=== PATIENT | female | born 2005 | race Caucasian/White ===

== ENCOUNTER 2025-06-07 09:36 | Emergency (ER) | payer OTHER, SELFPAY ==
[2025-06-07 09:48] VITALS: BP 108/73; PULSE 88; RESP 16; TEMP 36.9; O2SAT 100
--- NOTE | 2025-06-07 10:51 | ED.EYEPROB ---
HPI - Eye Problem General Chief complaint: Eye Problems Stated complaint: pink eye Time Seen by Provider: 06/07/25 10:45 Source: patient and RN notes reviewed Mode of arrival: ambulatory Limitations: no limitations History of Present Illness HPI Narrative: 19-year-old female patient presents today with bilateral eye redness, slight itching, and crusting. Denies vision changes, pain, purulent discharge. Patient had pinkeye 2 weeks ago and was treated with antibiotic drops. States she for got to wash her pillowcase in her home and left her antibiotic drops in her dorm room and college. She does not were glasses or contacts. Related Data Home Medications ?Medication ?Instructions ?Recorded ?Confirmed ?Last Taken ?Type drospirenone 3 mg-ethinyl tablet 06/07/25 Unknown History estradiol 0.02 mg tablet (Loryna (28)) Allergies Allergy/AdvReac Type Severity Reaction Status Date / Time No Known Allergies Allergy Verified 06/07/25 09:43 PMFSH Comments At time of signature, I have reviewed and agree with nursing past medical, surgical, social and family history unless otherwise noted. Please see nursing chart for further information. There is no relevant family history pertinent to the presenting complaint Exam Narrative: GENERAL: Well-appearing, well-nourished, and in no acute distress. HEAD: Normocephalic, atraumatic. EYES: EOMI. PERRL. Bilateral injected conjunctiva, left greater than right. Lids and lashes normal. ENT: Mucous membranes pink and moist. NECK: Normal AROM. CHEST: No respiratory distress. EXTREMITIES: Normal range of motion. No edema. SKIN: Warm, dry, no rash. Capillary refill normal. Normal skin turgor. NEURO: No focal deficits. Alert and oriented x3. Gait steady. PSYCH: Normal affect. No signs of depression or anxiety. Course Course Level of Care: Express Care Visit Vital Signs Vital signs: Vital Signs Temperature 98.5 F 06/07/25 09:48 Pulse Rate 88 06/07/25 09:48 Respiratory Rate 16 06/07/25 09:48 Blood Pressure 108/73 06/07/25 09:48 Pulse Oximetry 100 06/07/25 09:48 Temperature 98.5 F 06/07/25 09:48 Pulse Rate 88 06/07/25 09:48 Respiratory Rate 16 06/07/25 09:48 Blood Pressure 108/73 06/07/25 09:48 Pulse Oximetry 100 06/07/25 09:48 Reviewed MDM - Eye Problem MDM Narrative Medical decision making narrative: 19-year-old female patient presents today with bilateral eye redness, slight itching, and crusting. Denies vision changes, pain, purulent discharge. Patient had pinkeye 2 weeks ago and was treated with antibiotic drops. States she for got to wash her pillowcase in her home and left her antibiotic drops in her dorm room and college. She does not were glasses or contacts. Upon exam, patient has bilateral injected conjunctiva, lids and lashes normal. At this time, patient has no purulent discharge, however, with recent bacterial conjunctivitis treatment and exposure to discharge on her pillow at home, will treat again for likely early bacterial conjunctivitis with Polytrim. Patient agrees with plan. Vital signs stable. Anticipatory guidance given. Differential Diagnosis Differential diagnosis: Likely conjunctivitis Critical Care Time Critical Care Time Critical Care Time: No Discharge Plan Discharge Clinical Impression: Acute bacterial conjunctivitis of both eyes Patient Disposition: Home Condition: Stable Instructions: Conjunctivitis (ED) Additional Instructions: Please use the eyedrops as directed. Wash your hands frequently, especially before and after use of the drops. Wash your pillow case frequently. Follow-up with your PCP next week if symptoms are not improving. Patient Language: Tongan Prescriptions: New polymyxin B sulf-trimethoprim 10,000 unit- 1 mg/mL drops 1 drp EACH EYE QID 7 Days Qty: 10 0RF No Action drospirenone-ethinyl estradiol [Marycarmen (28)] 3-0.02 mg tablet Follow-up/Referrals: PHYSICIAN,[facility]SEUR [Primary Care Provider, Internal Medicine] Time of Disposition: 10:55
== END 2025-06-07 10:56 | disposition home or self-care (01) ==
PROVIDERS: Emergency Provider Nurse Practitioner
DX: H10.33 Unspecified acute conjunctivitis, bilateral (principal)
CPT/HCPCS: 99203; G0463